=== PATIENT | female | born 1955 | race Two or more races ===

== ENCOUNTER 2024-03-27 00:31 | Emergency (ER) | payer MEDICARE, MEDICAID, SELFPAY ==
--- NOTE | 2024-03-27 00:39 | EKG_ITS ---
[facility] Test Date: 2024-03-27 Pat Name: GREGORIO HUNT Department: Room: - Gender: Female [employer] Equipment [employer]r: : 1955 Requested By: ED Temporary Provider Order Number: [id number] Reading MD: ED Temporary Provider Measurements Intervals [place] Rate: 87 P: 70 MO: 159 QRS: 38 QRSD: 85 T: 44 QT: 380 QTc: 460 Interpretive Statements SINUS RHYTHM WITH OCCASIONAL SUPRAVENTRICULAR PREMATURE COMPLEXES NONSPECIFIC T-WAVE ABNORMALITY Compared to ECG 12/07/2023 11:03:15 No significant changes /store/S0/[id number].pdf
[2024-03-27 00:49] VITALS: BP 162/72; PULSE 85; RESP 16; TEMP 37; O2SAT 95
--- NOTE | 2024-03-27 01:05 | PD.EDRME ---
Rapid Medical Screening Exam RME Arrival date/time: 03/27/24 00:31 68-year-old female past medical history of hypertension and on blood thinner Xarelto presents complaining of palpitations after starting colonoscopy prep yesterday evening. Chief Complaint: General Adult/Misc Complain Time Seen by Provider: 03/27/24 00:52 Vital signs: Vital Signs Temperature 98.6 F 03/27/24 00:49 Pulse Rate 85 03/27/24 00:49 Respiratory Rate 16 03/27/24 00:49 Blood Pressure 162/72 H 03/27/24 00:49 Pulse Oximetry (%) 95 03/27/24 00:49 Oxygen Delivery Method Room Air 03/27/24 00:49 Vital signs reviewed by provider: Yes
--- NOTE | 2024-03-27 01:41 | PD.EDADULT ---
ED General RME/HPI General Chief complaint: General Adult/Misc Complain Stated complaint: Palpitations/High BP Time Seen by Provider: 03/27/24 00:52 Arrival date/time: 03/27/24 00:31 RME / HPI RME / HPI narrative: 03/27/24 00:31 RME: 68-year-old female past medical history of hypertension and on blood thinner Xarelto presents complaining of palpitations after starting colonoscopy prep yesterday evening. JUAN J HPI: 68-year-old female with a history of paroxysmal atrial fibrillation, hypertension, who presents to the emergency department with nausea and vomiting after starting her colonoscopy prep. After vomiting she noted her blood pressure was elevated and she was having symptoms of palpitations, and after texting with her daughter was advised to take her Xarelto this evening. She was to hold on her Xarelto for the last 2 days as she has a colonoscopy in the morning. Vomiting has since resolved and she is otherwise well. Patient denies chest pain or shortness of breath throughout this episode. Related Data Home Medications ?Medication ?Instructions ?Recorded ?Confirmed acetaminophen 160 mg 160 mg PO DAILY PRN Pain (Scale 04/17/19 04/17/19 disintegrating tablet Score 1-3) albuterol sulfate 90 mcg/actuation 2 puff inhalation Q6H PRN Wheezing 04/17/19 04/11/23 aerosol inhaler amlodipine 5 mg tablet 10 mg PO QDAY 04/17/19 04/11/23 aspirin 81 mg chewable tablet 81 mg PO QDAY 04/17/19 04/20/19 azelastine 205.5 mcg (0.15 %) 2 spray intranasal BID 04/17/19 04/17/19 nasal spray hydrochlorothiazide 25 mg tablet 25 mg PO QDAY 04/17/19 04/11/23 loratadine 10 mg tablet 10 mg PO QDAY 04/17/19 04/17/19 metoprolol tartrate 50 mg tablet 50 mg PO DAILY 04/17/19 04/11/23 omeprazole 20 mg capsule,delayed 20 mg PO QDAY 04/17/19 04/11/23 release atorvastatin 40 mg tablet 40 mg PO DAILY 04/11/23 04/11/23 cholecalciferol (vitamin D3) 125 125 mcg PO QDAY 04/11/23 04/11/23 mcg (5,000 unit) tablet (Vitamin D3) metformin 500 mg tablet 500 mg PO QDAY 04/11/23 04/11/23 rivaroxaban 20 mg tablet (Xarelto) 20 mg PO QDAY 04/11/23 04/11/23 Previous Rx's ?Medication ?Instructions ?Recorded amoxicillin 875 mg-potassium 1 tab PO BID #14 tabs 04/11/23 clavulanate 125 mg tablet dicyclomine 20 mg tablet 20 mg PO TID PRN abdominal pain 04/11/23 #14 tabs ondansetron 4 mg disintegrating 4 mg PO Q8H PRN nausea and 04/11/23 tablet vomiting #14 tabs diltiazem HCl 30 mg tablet 30 mg PO TID #90 tabs 12/07/23 Allergies Allergy/AdvReac Type Severity Reaction Status Date / Time No Known Allergies Allergy Verified 04/10/23 23:06 Review of Systems Review of Systems Systems Reviewed: All systems reviewed, normal except as documented ED Exam Narrative Physical exam: GENERAL APPEARANCE: AxOx4, generally well-appearing, no acute distress. HEENT: NC, AT. MMM. EOMI, clear conjunctiva, oropharynx clear. NECK: Supple without lymphadenopathy. No stiffness or restricted ROM. HEART: Normal rate and regular rhythm, normal S1/S1, no m/r/g LUNGS: CTAB, moving air well. No crackles or wheezes are heard. ABDOMEN: Soft, nontender, nondistended with good bowel sounds heard. BACK: No midline C/T/L spine pain or deformity, No CVAT, no obvious deformity. EXTREMITIES: Without cyanosis, clubbing or edema. MUSCULOSKELETAL: FROM of all major joints, no chest tenderness NEUROLOGICAL: Grossly nonfocal. Alert and oriented, moving all 4 extremities. CN not formally tested but appear grossly intact. Observed to ambulate with normal gait. Skin: Warm and dry without any rash. Course Quality Measures none Orders Category Date Time Status EKG (ED ONLY) *Do not use* NOW Care 03/27/24 00:39 Completed EKG (ED Only) Stat Exams 03/27/24 00:39 Draft Vital Signs Vital signs: Vital Signs Temperature 98.6 F 03/27/24 00:49 Pulse Rate 85 03/27/24 00:49 Respiratory Rate 16 03/27/24 00:49 Blood Pressure 162/72 H 03/27/24 00:49 Pulse Oximetry (%) 95 03/27/24 00:49 Oxygen Delivery Method Room Air 03/27/24 00:49 SpO2 95% on room air, patient is not hypoxic MDM Patient data External records reviewed:: [facility] previous records Clinical information provided by:: patient and family Social determinants that could affect healthcare access:: none Patient has the following chronic illnesses:: Hypertension, paroxysmal atrial fibrillation How is presenting disease/condition affected by chronic disease/condition?: uneffected by Evaluation data The following diagnostics were reviewed and interpreted by me:: other (specify) (Workup no indicated) Lab and/or radiology exams considered but not ordered:: None Interpretation Summary: None Medications Medications considered but not ordered:: None Medication administrations:: None Consultations Consultation(s) initiated? (list below): No Diagnosis Differential Diagnosis ED Complaint MDM: Paroxysmal atrial fibrillation, gastritis, nausea Most likely diagnosis given after review of the tests above:: See below Admission Indicated Admission indicated?: not indicated Explain why admission is indicated or not indicated:: As per narrative Admission Request Was there a request for admission?: No Disposition Plan Disposition Plan: Discharge Discharge Attestation Discharge Attestation: The patient and all family members were given an opportunity to ask questions and understood the discharge instructions. Discharge instructions specifically effects, indications for sooner follow up or return to the emergency department, and the expected course of current diagnosis. Patient condition: Stable Medical Decision Making MDM Narrative MDM Narrative: Ms. Cate Alfonso presents to the emergency department with nausea and vomiting while in the process of taking her bowel prep for a colonoscopy in the morning. This had associated palpitations elevation in blood pressure which is expected under the stress of vomiting. Unfortunately she has a misunderstanding and took her Xarelto which I feel that likely she is can now have to cancel her colonoscopy in the morning. EKG shows that she has a normal sinus rhythm without signs of atrial fibrillation. She is clinically well-appearing, nontoxic, and these are all symptoms are associated after having vomiting and while on a bowel prep. Further workup is not indicated today. Differential Diagnosis Differential Diagnosis: Paroxysmal atrial fibrillation, gastritis, nausea Discharge Plan Plan Patient Disposition: HOME (Self Care) Prescriptions/Referrals Prescriptions/Med Rec: No Action amlodipine 5 mg Tablet 10 mg PO QDAY metoprolol tartrate 50 mg Tablet 50 mg PO DAILY omeprazole 20 mg Capsule,Delayed Release(Dr/Ec) 20 mg PO QDAY aspirin 81 mg Tablet,Chewable 81 mg PO QDAY hydrochlorothiazide 25 mg Tablet 25 mg PO QDAY albuterol sulfate 90 mcg/actuation Hfa Aerosol Inhaler 2 puff INHALATION Q6H PRN (Reason: Wheezing) loratadine 10 mg Tablet 10 mg PO QDAY acetaminophen 160 mg Tablet,Disintegrating 160 mg PO DAILY PRN (Reason: Pain (Scale Score 1-3)) azelastine 0.15 % (205.5 mcg) [place],Non-Aerosol 2 spray INTRANASAL BID atorvastatin 40 mg Tablet 40 mg PO DAILY metformin 500 mg Tablet 500 mg PO QDAY cholecalciferol (vitamin D3) [Vitamin D3] 125 mcg (5,000 unit) Tablet 125 mcg PO QDAY Xarelto 20 mg Tablet 20 mg PO QDAY Rx Instructions: must administer with evening meal amoxicillin-pot clavulanate 875-125 mg tablet 1 tab PO BID Qty: 14 0RF dicyclomine 20 mg tablet 20 mg PO TID PRN (Reason: abdominal pain) Qty: 14 0RF ondansetron 4 mg tablet,disintegrating 4 mg PO Q8H PRN (Reason: nausea and vomiting) Qty: 14 0RF diltiazem HCl 30 mg tablet 30 mg PO TID Qty: 90 0RF Problem List Clinical Impression: Palpitation Patient/Caregiver Discharge Instructions Education Materials: ED Palpitations Additional Instructions: Comun?quese con lopez gastroenter?logo ma?matti para informarle que sherlyn? Xarelto accidentalmente anoche y que deber? reprogramar lopez colonoscopia. Realice un seguimiento con lopez m?dico de atenci?n primaria seg?n sea necesario. Puede regresar al departamento de emergencias antes si los s?ntomas empeoran o si nota alg?n problema nuevo y preocupante. Print Language: Polish Stand Alone Forms: Cathy Award Info., Patient Portal Info Letter
[2024-03-27 01:48] VITALS: RESP 18
== END 2024-03-27 01:48 | disposition home or self-care (01) ==
PROVIDERS: Emergency Provider Emergency Medicine; PCP Nurse Practitioner Family; Referring Provider Emergency Medicine
DX: R00.2 Palpitations (principal); I48.0 Paroxysmal atrial fibrillation; I10 Essential (primary) hypertension
CPT/HCPCS: 80053; 81001; 83735; 83880; 84484; 85025; 85610; 85730; 93005; 99283